=== PATIENT | male | born 1990 | race Caucasian/White ===

== ENCOUNTER 2020-04-11 00:47 | Emergency (ER) | payer SELFPAY ==
[~2020-04-11] VITALS: Ht 175.3 cm; Wt 81.6 kg
[2020-04-11 00:57] VITALS: Ht 175.3 cm; Wt 81.6 kg
[2020-04-11 02:03] VITALS: BP 137/90
== END 2020-04-11 02:04 | disposition other institution (70) ==
LOC: ED 00:47
DX: L02.211 Cutaneous abscess of abdominal wall (principal); J45.909 Unspecified asthma, uncomplicated; F17.210 Nicotine dependence, cigarettes, uncomplicated
CPT/HCPCS: 90715

== ENCOUNTER 2020-04-11 00:47 | Emergency (ER) | payer OTHER | END 2020-04-11 02:04 | disposition other institution (70) | LOC: ED 00:47 | DX: Z02.89 Encounter for other administrative examinations (principal) ==